=== PATIENT | male | born 1985 | race African-American/Black ===

== ENCOUNTER 2024-04-29 14:39 | Emergency (ER) | payer SELFPAY ==
[2024-04-29] MEDS ORDERED: Ibuprofen 200 MG TAB ONE (15:57)
== END 2024-04-29 16:09 | disposition home or self-care (01) ==
LOC: CSHERS 14:39
DX: S92.535A Nondisplaced fracture of distal phalanx of left lesser toe(s), initial encounter for closed fracture (principal); X58.XXXA Exposure to other specified factors, initial encounter
CPT/HCPCS: 99283